=== PATIENT | female | born 1995 | race Caucasian/White ===

== ENCOUNTER 2023-07-12 18:59 | Emergency (ER) | payer OTHER ==
[~2023-07-12] VITALS: Ht 170.2 cm; Wt 74.8 kg
[2023-07-12 19:04] VITALS: BP 128/76; PULSE 87; RESP 18; TEMP 98.5
[2023-07-12] MEDS: ACETAMINOPHEN 325 MG TAB PO ONE (20:45)
[2023-07-12] MEDS ORDERED: IBUP-1842 PO (21:35)
== END 2023-07-12 21:44 | disposition home or self-care (01) ==
LOC: MED 18:59
DX: M25.562 Pain in left knee (principal); M54.50 Low back pain, unspecified; Z79.899 Other long term (current) drug therapy; V49.88XA Car occupant (driver) (passenger) injured in other specified transport accidents, initial encounter; Y93.89 Activity, other specified; Y92.89 Other specified places as the place of occurrence of the external cause; Y99.8 Other external cause status
CPT/HCPCS: 72100; 73562; 81002; 81025; 99284